=== PATIENT | female | born 1990 | race Caucasian/White ===

== ENCOUNTER 2021-07-05 17:58 | Emergency (ER) | payer SELFPAY ==
[~2021-07-05] VITALS: Ht 162.6 cm; Wt 47.6 kg
--- NOTE | 2021-07-05 18:13 | NUR ---
[id number] FOR VOMITING. PT WAS SEEN URGENT CARE SENT HERE FOR UNCONTROLLED VOMITING. HX OF MARIJUANA USE. TO ER BED 14, HOOKED TO MONITOR, CHANGED TO HOSP GOWN, WARM BLANKET PROVIDED, PATIENT AAO x 4. BREATHING EVEN AND UNLABORED. AWAITING MD GARZA
--- NOTE | 2021-07-05 18:22 | NUR ---
DR MENDEZ AT BEDSIDE
--- NOTE | 2021-07-05 18:50 | NUR ---
PATIENT COMPLAINED ABDOMINAL PAIN, MADE DR MENDEZ AWARE
[2021-07-05] MEDS ORDERED: LORAZEPAM INJ 2 MG/ML VIAL ONE (19:13)
[2021-07-05] MEDS ORDERED: IV NS 0.9% 1,000 ML BAG IV ONE (19:30)
[2021-07-05] MEDS ORDERED: LORAZEPAM INJ 2 MG/ML VIAL IV ONE (19:30)
[2021-07-05 19:42] LABS: CALCIUM, SERUM 8.3 mg/dL (8.5-10.1)
[2021-07-05 19:49] LABS: ALBUMIN 3.8 g/dL (3.4-5.0); BILIRUBIN,DIRECT 0.1 mg/dL (0.0-0.2); BILIRUBIN,TOTAL 0.4 mg/dL (0.2-1.0); TOTAL PROTEIN, SERUM 6.5 g/dL (6.4-8.2)
[2021-07-05 20:22] LABS: BASOPHILS % (AUTO) 0.4 % (0.0-2.0); EOSINOPHILS % (AUTO) 0.1 % (0.0-6.0); HEMATOCRIT 33 % (33-45); HEMOGLOBIN 11.3 g/dL (11.5-14.8); LYMPHOCYTES # (AUTO) 0.4 K/uL (0.8-4.8); LYMPHOCYTES % (AUTO) 8.7 % (20.0-44.0); MEAN CORPUSCULAR HGB CONC 34 g/dl (31.0-36.0); MEAN CORPUSCULAR VOLUME 94 fL (82-100); MONOCYTES # (AUTO) 0.2 K/uL (0.1-1.30); MONOCYTES % (AUTO) 3.8 % (2.0-12.0); NEUTROPHILS # (AUTO) 4.3 K/uL (1.8-8.9); PLATELET COUNT (AUTO) 204 K/uL (150-450); RED BLOOD CELL COUNT(AUTO) 3.54 MIL/uL (4.0-5.2)
[2021-07-05] MEDS ORDERED: HALOPERIDOL LACTATE INJ 5 MG/ML VIAL IV ONE ×2 (20:30→21:30)
[2021-07-05] MEDS ORDERED: HYDROMORPHONE MDV 0.5 MG in IV D5W 50 ML IV PRN (21:00)
[2021-07-05] MEDS ORDERED: Magnesium 1GM/D5W 100ML PREMIX 200 ML IV ONE (21:20)
[2021-07-05] MEDS ORDERED: POTASSIUM CHLORIDE 20 MEQ TAB.PRT.SR PO ONE ×2 (21:20→21:30)
[2021-07-05] MEDS ORDERED: HYDROMORPHONE 1 MG/1 ML DISP.SYRIN ONE (21:20)
[2021-07-05] MEDS ORDERED: HYDROMORPHONE 1 MG/1 ML DISP.SYRIN IV ONE (21:30)
[2021-07-05] MEDS: Magnesium 1GM/D5W 100ML PREMIX 100 ML IV SCH ×2 (21:30→23:16)
--- NOTE | 2021-07-06 00:26 | NUR ---
Patient discharged to home in stable condition. Written and verbal after care instructions given. Patient verbalizes understanding of instruction.
[2021-07-06 03:07] VITALS: BP 109/68
== END 2021-07-06 00:26 | disposition home or self-care (01) ==
LOC: ER 18:00
DX: E87.6 Hypokalemia (principal); R11.15 Cyclical vomiting syndrome unrelated to migraine; R10.84 Generalized abdominal pain
CPT/HCPCS: 36415; 80048; 80076; 83690; 83735; 84703; 85025; 93005; 96361; 96365; 96366; 96375; 99285; J1170; J2060; J3475; J7030; J7060